=== PATIENT | male | born 1960 | race Caucasian/White ===

== ENCOUNTER 2020-09-24 08:40 | Day surgery (SDC) | payer BC ==
[~2020-09-24] VITALS: Ht 175.3 cm; Wt 73.0 kg
[2020-09-24 09:18] VITALS: BP 116/76; PULSE 86; TEMP 97.9
[2020-09-24 10:10] VITALS: BP 107/82; PULSE 89; TEMP 97.7
--- NOTE | 2020-09-24 10:10 | NUR ---
Pt to [facility] [place] [facility] [place] from [facility]. Pt awake and alert. Pt ambulates to recliner with stand by assitance. Pt denies pain or nausea. Warm blankets provided. Muffin and juice given per pt request. Call light within reach.
[2020-09-24 10:25] VITALS: BP 96/74; PULSE 86
--- NOTE | 2020-09-24 10:25 | NUR ---
Pt continues to rest. Denies needs. Call light within reach.
[2020-09-24 10:40] VITALS: BP 119/81; PULSE 81
--- NOTE | 2020-09-24 10:40 | NUR ---
Discharge instructions reviewed. Pt voices understanding. IV site discontinued with all parts intact. Pt up to dress. Call light within reach.
--- NOTE | 2020-09-24 10:55 | NUR ---
Pt escorted to private car via wheel chair. Pt accompanied home by his .
== END 2020-09-24 10:55 | disposition home or self-care (01) ==
LOC: SDCO 08:40
DX: K92.1 Melena (principal); K64.0 First degree hemorrhoids; Z20.822 Contact with and (suspected) exposure to COVID-19
CPT/HCPCS: J2704; J7120